=== PATIENT | female | born 1975 | race Caucasian/White ===

== ENCOUNTER → 2017-04-02 | Outpatient (CLI) | payer OTHER ==
[~2017-04-02] MED LIST: CIPRO500 MG PO; CLEOCIN HCL150 MG PO; CYCLOBENZAPRINE5 MG PO; FEMHRT 0.5 MG-1 EACH PO; HYDROCODONE-AP1 EAC6 PO; LINZESS72 MCG PO; NABUMETONE 750750 M1 PO; NORCO 5-325 TA1 EACH PO; OMEPRAZOLE 20 M20 MG PO; PREDNISONE50 MG PO; PYRIDIUM100 M1 PO; TRAMADOL 50 MG50 MG PO; VALIUM5 MG PO
== END ==
LOC: M.SLEEPLAB 02:01
DX: G47.30 Sleep apnea, unspecified (principal)

== ENCOUNTER → 2017-05-10 | Outpatient (CLI) | payer OTHER | LOC: M.CT 11:58 | DX: N20.0 Calculus of kidney (principal); Z90.49 Acquired absence of other specified parts of digestive tract ==

== ENCOUNTER 2017-07-07 00:01 | Emergency (ER) | payer OTHER, MEDICAID ==
[~2017-07-07] VITALS: Ht 162.6 cm; Wt 111.1 kg
[~2017-07-07 00:01] MED LIST changes: -CLEOCIN HCL150 MG PO; -FEMHRT 0.5 MG-1 EACH PO; -HYDROCODONE-AP1 EAC6 PO; -NABUMETONE 750750 M1 PO; -PREDNISONE50 MG PO; -VALIUM5 MG PO
[2017-07-07] MEDS ORDERED: VALIUM5 MG PO (00:12)
[2017-07-07 00:40] LABS: ABSOLUTE BASOPHILS 0.1 thou/uL (0.0-0.2); ABSOLUTE EOSINOPHILS 0.3 thou/uL (0.0-0.7); ABSOLUTE LYMPHOCYTES 2.9 thou/uL (0.8-5.3); ABSOLUTE MONOCYTES 0.7 thou/uL (0.0-1.2); ABSOLUTE NEUTROPHILS 6.4 thou/uL (1.6-8.1); BASOPHILS 1.3 %; EOSINOPHILS 2.6 %; HEMATOCRIT 40.2 % (37.0-47.0); HEMOGLOBIN 13.6 gm/dL (12.0-15.0); LYMPHOCYTES 27.7 %; MCH 29.9 pg (26.0-34.0); MCHC 33.7 g/dL (28.0-37.0); MCV 88.8 fL (80.0-100.0); MPV 7.9 fl. (7.2-11.1); NUCLEATED RBCS 0 /100WBC; PLATELET COUNT* 386 thou/uL (150-400); POLYS 61.4 %; RBC 4.53 mil/uL (4.20-5.00); RDW-CV 13.3 % (10.5-14.5); WBC 10.4 thou/uL (4.0-11.0)
[2017-07-07 00:44] LABS: CALCIUM 8.8 mg/dL (8.5-10.1)
[2017-07-07 00:46] LABS: URINE BILIRUBIN NEGATIVE (Negative); URINE BLOOD NEGATIVE (Negative); URINE CLARITY CLEAR; URINE COLOR YELLOW; URINE GLUCOSE-RANDOM NEGATIVE (Negative); URINE KETONES NEGATIVE (Negative); URINE LEUKOCYTES-REFLEX NEGATIVE (Negative); URINE NITRITE-REFLEX NEGATIVE (Negative); URINE PROTEIN NEGATIVE (Negative); URINE UROBILINOGEN 0.2 E.U./dl (0.2-1.0)
[2017-07-07 00:49] LABS: ALBUMIN 3.2 g/dL (3.4-5.0); TOTAL BILIRUBIN 0.3 mg/dL (<0.1-1.0); TOTAL PROTEIN 7.1 g/dL (6.4-8.2)
[2017-07-07] MEDS ORDERED: NORCO 5-325 TA1 EACH PO (02:00)
[2017-07-07 02:11] VITALS: BP 118/73
== END 2017-07-07 02:14 | disposition home or self-care (01) ==
LOC: M.ERS 00:01
PROVIDERS: Family Medicine
DX: R10.9 Unspecified abdominal pain (principal); Z90.49 Acquired absence of other specified parts of digestive tract; Z87.442 Personal history of urinary calculi; Z88.1 Allergy status to other antibiotic agents; Z88.8 Allergy status to other drugs, medicaments and biological substances

== ENCOUNTER → 2017-07-08 | Outpatient (CLI) | payer OTHER, MEDICAID ==
[~2017-07-08] MED LIST changes: +CLEOCIN HCL150 MG PO; +FEMHRT 0.5 MG-1 EACH PO; +HYDROCODONE-AP1 EAC6 PO; +NABUMETONE 750750 M1 PO; +PREDNISONE50 MG PO; +VALIUM5 MG PO
== END ==
LOC: M.ULTRA 07-05 13:00
DX: N83.202 Unspecified ovarian cyst, left side (principal); N83.201 Unspecified ovarian cyst, right side; N88.8 Other specified noninflammatory disorders of cervix uteri

== ENCOUNTER 2017-07-25 07:46 | Observation (INO) | payer OTHER, MEDICAID ==
[~2017-07-25] VITALS: Ht 162.6 cm; Wt 118.8 kg
--- NOTE | ~2017-07-25 | OP ---
[address] [address] OPERATIVE REPORT Name: KRZYSZTOF MARLOW Room: [address] Lexx Thornton#: [id number] Admission: 07/25/17 Attend Phys: Maxwell Crocker MD Discharge: 07/26/17 Date of : 71 Report #: [id number] THIS REPORT FOR: //name// For Operative report details, please see the post operative note from the same day. By: [id number] Records Staff NEHAL /HERMAN
--- NOTE | ~2017-07-25 | H ---
[address] [address] HISTORY AND PHYSICAL Name: KRZYSZTOF MARLOW Room: [address] Lexx Thornton#: [id number] Admission: 07/25/17 Attend Phys: Maxwell Crocker MD Discharge: 07/26/17 Date of : 71 Report #: [id number] THIS REPORT FOR: //name// Please refer to the History and Physical performed in the physician's office. By: [id number] Records Staff NEHAL /HERMAN
[~2017-07-25 07:46] MED LIST changes: -CLEOCIN HCL150 MG PO; -FEMHRT 0.5 MG-1 EACH PO; -HYDROCODONE-AP1 EAC6 PO; -NABUMETONE 750750 M1 PO; -PREDNISONE50 MG PO
[2017-07-25 08:19] LABS: HEMATOCRIT 43.4 % (37.0-47.0); HEMOGLOBIN 14.7 gm/dL (12.0-15.0); MCH 29.5 pg (26.0-34.0); MCHC 33.8 g/dL (28.0-37.0); MCV 87.5 fL (80.0-100.0); MPV 8.1 fl. (7.2-11.1); RBC 4.97 mil/uL (4.20-5.00); RDW-CV 13.3 % (10.5-14.5); WBC 9.9 thou/uL (4.0-11.0)
[2017-07-25 08:31] LABS: POTASSIUM 3.9 mmol/L (3.5-5.1)
[2017-07-25 08:36] LABS: ALBUMIN 3.3 g/dL (3.4-5.0); TOTAL BILIRUBIN 0.3 mg/dL (<0.1-1.0); TOTAL PROTEIN 7.4 g/dL (6.4-8.2)
[2017-07-25 12:45] VITALS: BP 124/60
[2017-07-25 15:45] VITALS: BP 113/69
[2017-07-25 20:00] VITALS: BP 132/85
--- NOTE | 2017-07-25 20:42 | NUR ---
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 SHE IS ALERT AND ORIENTED X4 AND IS UP WITH STAND BY ASSIST. BED IS IN THE LOW LOCKED POSITION AND CALL LIGHT IS IN REACH. HOURLY ROUNDING WAS COMPLETED AND PATIENT NEEDS WERE MET. PAIN IS MANAGED WITH PRN MEDICATIONS. IS AT THE BEDSIDE. ALL 3 LAP SITES ARE C/D/I WITH DERMABOND. SHE IS WEARING SCD'S. FLUIDS ARE INFUSING. WILL CONTINUE TO MONITOR.
[2017-07-25 23:54] VITALS: BP 125/87
[2017-07-26 03:55] VITALS: BP 131/82
--- NOTE | 2017-07-26 04:46 | NUR ---
PATIENT ALERT AND ORIENTED X4 THROUGHOUT SHIFT. VITAL SIGNS STABLE ON ROOM AIR. IV PATENT IN THE LEFT HAND INFUSING AT 125 ML/HR. DENIES NAUSEA. PAIN MANAGED WITH PO PAIN MEDICATIONS PER ORDERS. REPOSITIONING SELF IN BED. TRANSFERS AD STEVEN TO THE RESTOOM. TOLERATING REGULAR DIET. RESTING COMFORTABLY THROUGHOUT NIGHT. HOURLY ROUNDING COMPLETE. BED IN LOW POSITION. CALL LIGHT WITHIN REACH. NURSING WILL CONTINUE TO MONITOR.
[2017-07-26 07:45] VITALS: BP 120/78
[2017-07-26] MEDS ORDERED: FEMHRT 0.5 MG-1 EACH PO (10:20)
[2017-07-26] MEDS ORDERED: HYDROCODONE-AP1 EAC6 PO (10:21)
[2017-07-26 10:22] VITALS: BP 120/78
--- NOTE | 2017-11-26 15:15 | PATH ---
[facility] [address] [place] [address] PATHOLOGY RPT PROCEDURE Name: KRZYSZTOF MARLOW Room: [address] Lexx Thornton#: [id number] Admission: 07/25/17 Date of : 71 Discharge: 07/26/17 Report #: [id number] Path Case #: [id number] LCA Accession Number: [id number] . 01 Material submitted: . BILATERAL TUBES AND OVARIES . 01 Clinical history: . Right ovarian cyst, abnormal menses, pelvic pain. . 02 Diagnosis: Bilateral tubes and ovaries: - Larger tubo-ovarian complex (9 grams) with degenerating ovarian corpora lutea and corpora albicantia and fimbriated fallopian tube with cystic Walthard's rest, simple paratubal mullerian cyst and evidence of prior ligation. - Smaller tubo-ovarian complex (7 grams) with ovarian corpus luteum, follicular cyst and corpora albicantia and fimbriated fallopian tube with cystic Walthard's rest and evidence of prior ligation. (SUE:db; 07/29/2017) LBQ/07/29/2017 . 02 Comment: This case was prepared and proofread by Dr. Earnest Chaves and electronically released by Dr. Martha Resendiz. . 02 Electronically signed: . Martha Resendiz MD, Pathologist NPI- [id number] . 01 Gross description: . The specimen is received in formalin, labeled " Krzysztof Marlow and bilateral tubes and ovaries", are two tubo-ovarian complexes, the largest weighing 9 g and measuring (ovary) 2.5 x 2.0 x 1.5 cm and attached fimbriated fallopian tube (5.5 cm in length and up to 0.4 cm in diameter) and the other weighing 7 g and measuring (ovary) 3.0 x 2.0 x 1.7 cm and fimbriated fallopian tube (5.0 cm in length and up to 0.4 cm in diameter). Both the fallopian tubes show status post previous ligations. Both the ovaries cut surface shows corpora lutea and corpora albicantia, with the largest containing a 2.0 x 1.0 x 0.8 cm cyst filled with blood-tinged fluid. The serosal surface of fallopian tube attached to the largest tubo-ovarian complex has three rocha-white nodules measuring 0.1 cm, 0.2 cm and 0.2 cm and a paratubal cyst measuring 1.0 x 0.6 x 0.5 cm filled with clear serous fluid. The second fallopian tube serosal surface has a 0.1 cm in greatest dimension paratubal cyst. Both of the fallopian tubes show a well-defined lumen. Telephone Sales Agent sections submitted as follows: [place] [address] PATHOLOGY RPT PROCEDURE Name: KRZYSZTOF MARLOW Room: [address] Lexx Thornton#: [id number] Admission: 07/25/17 Date of : 71 Discharge: 07/26/17 Report #: [id number] Path Case #: [id number] A1-A2 Ovary from largest tubo-ovarian complex A3 Fallopian tube from the largest tubo-ovarian complex A4-A5 Ovary from second tubo-ovarian complex A6 Fallopian tube from the second tubo-ovarian complex . (SWS; 07/26/2017) SHS/SHS . 02 Pathologist provided ICD-10: N83.8, N83.00, R10.2 . 02 CPT . 241233 Specimen Comment: A duplicate report has been generated due to demographic updates. Performed at: [address] [facility] [address], [place], [place] [id number] MD Juventino Jaimes MD Phone: [phone] Performed at: [address] [facility] [id number] MD Mame Ames MD Phone: [phone]
== END 2017-07-26 10:46 | disposition home or self-care (01) ==
LOC: M.SUR 07:46 → M.ORTHSURG 11:30 → M.TBA 11:30 → M.ORTHSURG 12:30
PROVIDERS: ADMIT Specialist
DX: K66.0 Peritoneal adhesions (postprocedural) (postinfection) (principal); R10.2 Pelvic and perineal pain; R30.0 Dysuria

== ENCOUNTER → 2017-09-20 | Outpatient (CLI) | payer OTHER, MEDICAID ==
[~2017-09-20] MED LIST changes: +CLEOCIN HCL150 MG PO; +FEMHRT 0.5 MG-1 EACH PO; +HYDROCODONE-AP1 EAC6 PO; +NABUMETONE 750750 M1 PO; +PREDNISONE50 MG PO
== END ==
LOC: M.RAD 12:38
DX: M25.562 Pain in left knee (principal)

== ENCOUNTER 2017-11-03 21:06 | Emergency (ER) | payer OTHER, MEDICAID ==
[~2017-11-03] VITALS: Ht 162.6 cm; Wt 108.4 kg
[~2017-11-03 21:06] MED LIST changes: -CLEOCIN HCL150 MG PO; -NABUMETONE 750750 M1 PO; -PREDNISONE50 MG PO
[2017-11-03] MEDS ORDERED: CLEOCIN HCL150 MG PO (21:48)
[2017-11-03] MEDS ORDERED: NABUMETONE 750750 M1 PO (21:48)
[2017-11-03] MEDS ORDERED: NORCO 5-325 TA1 EACH PO (21:48)
[2017-11-03 22:14] VITALS: BP 146/101
== END 2017-11-03 22:14 | disposition home or self-care (01) ==
LOC: M.ERS 21:06
DX: K04.7 Periapical abscess without sinus (principal); Z88.1 Allergy status to other antibiotic agents; Z88.8 Allergy status to other drugs, medicaments and biological substances; Z87.442 Personal history of urinary calculi; Z90.49 Acquired absence of other specified parts of digestive tract

== ENCOUNTER → 2017-11-05 | Outpatient (CLI) | payer OTHER, MEDICAID ==
[~2017-11-05] MED LIST changes: +CLEOCIN HCL150 MG PO; +NABUMETONE 750750 M1 PO; +PREDNISONE50 MG PO
== END ==
LOC: M.MRI 10-31 07:30
DX: S83.242A Other tear of medial meniscus, current injury, left knee, initial encounter (principal); S83.282A Other tear of lateral meniscus, current injury, left knee, initial encounter; X58.XXXA Exposure to other specified factors, initial encounter; Y93.89 Activity, other specified; Y92.89 Other specified places as the place of occurrence of the external cause; Y99.8 Other external cause status; Z79.899 Other long term (current) drug therapy

== ENCOUNTER 2017-11-11 12:36 | Emergency (ER) | payer OTHER, MEDICAID ==
[~2017-11-11] VITALS: Ht 162.6 cm; Wt 108.0 kg
[~2017-11-11 12:36] MED LIST changes: -PREDNISONE50 MG PO
[2017-11-11] MEDS ORDERED: PREDNISONE50 MG PO (13:34)
[2017-11-11] MEDS ORDERED: NORCO 5-325 TA1 EACH PO (13:34)
[2017-11-11 13:42] VITALS: BP 137/99
== END 2017-11-11 13:43 | disposition home or self-care (01) ==
LOC: M.ERS 12:36
DX: R68.84 Jaw pain (principal); Z88.1 Allergy status to other antibiotic agents; Z88.8 Allergy status to other drugs, medicaments and biological substances; Z90.49 Acquired absence of other specified parts of digestive tract; Z87.442 Personal history of urinary calculi; Z98.890 Other specified postprocedural states

== ENCOUNTER 2018-03-27 08:07 | Emergency (ER) | payer OTHER, MEDICAID ==
[~2018-03-27] VITALS: Ht 162.6 cm; Wt 103.9 kg
[~2018-03-27 08:07] MED LIST changes: +PREDNISONE50 MG PO
[2018-03-27 08:26] LABS: URINE BILIRUBIN NEGATIVE (Negative); URINE BLOOD NEGATIVE (Negative); URINE CLARITY CLEAR; URINE COLOR YELLOW; URINE GLUCOSE-RANDOM NEGATIVE (Negative); URINE KETONES NEGATIVE (Negative); URINE LEUKOCYTES-REFLEX NEGATIVE (Negative); URINE NITRITE-REFLEX NEGATIVE (Negative); URINE PROTEIN NEGATIVE (Negative); URINE UROBILINOGEN 0.2 E.U./dl (0.2-1.0)
[2018-03-27 08:37] LABS: HEMATOCRIT 46.9 % (37.0-47.0); MCH 30.5 pg (26.0-34.0); MCV 89.6 fL (80.0-100.0); MPV 7.6 fl. (7.2-11.1); RBC 5.24 mil/uL (4.20-5.00); RDW-CV 12.9 % (10.5-14.5); WBC 10.5 thou/uL (4.0-11.0)
[2018-03-27 08:44] LABS: CALCIUM 9.3 mg/dL (8.5-10.1); CREATININE 1.1 mg/dL (0.6-1.3)
[2018-03-27 08:58] LABS: ALBUMIN 3.5 g/dL (3.4-5.0); TOTAL BILIRUBIN 0.6 mg/dL (<0.1-1.0); TOTAL PROTEIN 7.9 g/dL (6.4-8.2)
[2018-03-27] MEDS ORDERED: HYDROCODONE-AP1 EAC6 PO (10:17)
[2018-03-27] MEDS ORDERED: ZOFRAN ODT4 MG DISSOLVE (10:17)
[2018-03-27 10:29] VITALS: BP 114/62
== END 2018-03-27 10:30 | disposition home or self-care (01) ==
LOC: M.ERS 08:07
PROVIDERS: Emergency Medicine Emergency Medical Services
DX: R10.12 Left upper quadrant pain (principal); R10.32 Left lower quadrant pain; Z88.1 Allergy status to other antibiotic agents; Z88.8 Allergy status to other drugs, medicaments and biological substances; Z90.49 Acquired absence of other specified parts of digestive tract; Z87.442 Personal history of urinary calculi; Z98.890 Other specified postprocedural states

== ENCOUNTER 2018-04-03 13:08 | Emergency (ER) | payer OTHER, MEDICAID ==
[~2018-04-03] VITALS: Ht 162.6 cm; Wt 103.9 kg
[~2018-04-03 13:08] MED LIST changes: +ZOFRAN ODT4 MG DISSOLVE
[2018-04-03] MEDS ORDERED: PROAIR HFA8.5 GM (13:20)
[2018-04-03] MEDS ORDERED: ESTRADIOL 1 MG T1 M1 PO (13:20)
[2018-04-03] MEDS ORDERED: EFFEXOR XR75 MG PO (13:20)
[2018-04-03 13:59] LABS: ABSOLUTE EOSINOPHILS 0.2 thou/uL (0.0-0.7); ABSOLUTE LYMPHOCYTES 1.7 thou/uL (0.8-5.3); ABSOLUTE MONOCYTES 0.5 thou/uL (0.0-1.2); BASOPHILS 0.2 %; EOSINOPHILS 1.8 %; HEMATOCRIT 46.2 % (37.0-47.0); HEMOGLOBIN 15.2 gm/dL (12.0-15.0); LYMPHOCYTES 20.2 %; MCH 29.6 pg (26.0-34.0); MCV 89.9 fL (80.0-100.0); MONOCYTES 5.9 %; MPV 7.6 fl. (7.2-11.1); NUCLEATED RBCS 1 /100WBC; PLATELET COUNT* 449 thou/uL (150-400); POLYS 71.9 %; RBC 5.14 mil/uL (4.20-5.00); RDW-CV 13.2 % (10.5-14.5); WBC 8.4 thou/uL (4.0-11.0)
[2018-04-03 14:02] LABS: URINE BILIRUBIN NEGATIVE (Negative); URINE BLOOD NEGATIVE (Negative); URINE CLARITY CLEAR; URINE COLOR YELLOW; URINE GLUCOSE-RANDOM NEGATIVE (Negative); URINE KETONES NEGATIVE (Negative); URINE LEUKOCYTES-REFLEX NEGATIVE (Negative); URINE NITRITE-REFLEX NEGATIVE (Negative); URINE PROTEIN NEGATIVE (Negative); URINE SPECIFIC GRAVITY 1.025 (1.005-1.030); URINE UROBILINOGEN 0.2 E.U./dl (0.2-1.0)
[2018-04-03 14:05] LABS: CALCIUM 8.7 mg/dL (8.5-10.1); CREATININE 1.1 mg/dL (0.6-1.3); POTASSIUM 3.8 mmol/L (3.5-5.1)
[2018-04-03] MEDS ORDERED: FLEXERIL PO (14:15)
[2018-04-03] MEDS ORDERED: PREDNISONE 10 M10 M1 PO (14:15)
[2018-04-03 14:24] VITALS: BP 129/86
== END 2018-04-03 14:25 | disposition home or self-care (01) ==
LOC: M.ERS 13:08
PROVIDERS: Nurse Practitioner
DX: M79.18 Myalgia, other site (principal); M79.651 Pain in right thigh; M79.652 Pain in left thigh; Z91.048 Other nonmedicinal substance allergy status; Z88.1 Allergy status to other antibiotic agents; Z88.8 Allergy status to other drugs, medicaments and biological substances; Z90.49 Acquired absence of other specified parts of digestive tract; Z87.442 Personal history of urinary calculi; Z98.890 Other specified postprocedural states; Z90.721 Acquired absence of ovaries, unilateral

== ENCOUNTER → 2018-05-30 | Outpatient (CLI) | payer OTHER ==
[~2018-05-30] MED LIST changes: +EFFEXOR XR75 MG PO; +ESTRADIOL 1 MG T1 M1 PO; +FLEXERIL PO; +PREDNISONE 10 M10 M1 PO; +PROAIR HFA8.5 GM
== END ==
LOC: M.RAD 03-13 13:00
DX: Z12.31 Encounter for screening mammogram for malignant neoplasm of breast (principal)

== ENCOUNTER 2018-06-03 16:43 | Emergency (ER) | payer OTHER ==
[~2018-06-03] VITALS: Ht 162.6 cm; Wt 103.9 kg
[2018-06-03 17:24] LABS: URINE BILIRUBIN NEGATIVE (Negative); URINE BLOOD 3+ (Negative); URINE CLARITY CLEAR; URINE COLOR YELLOW; URINE GLUCOSE-RANDOM NEGATIVE (Negative); URINE KETONES TRACE (Negative); URINE LEUKOCYTES-REFLEX NEGATIVE (Negative); URINE NITRITE-REFLEX NEGATIVE (Negative); URINE PROTEIN TRACE (Negative); URINE SPECIFIC GRAVITY >= 1.030 (1.005-1.030); URINE UROBILINOGEN 0.2 E.U./dl (0.2-1.0)
[2018-06-03 17:33] LABS: BACTERIA-REFLEX None Seen /HPF (None Seen); CASTS None Seen /LPF (None Seen); CRYSTALS None Seen /LPF (None Seen); SQUAMOUS >10 Many /LPF (0-3); URINE RBC 0-2 Rare /HPF (0-2); URINE WBC-REFLEX 0-5 Rare /HPF (0-5)
[2018-06-03 17:38] LABS: ABSOLUTE BASOPHILS 0.2 thou/uL (0.0-0.2); ABSOLUTE EOSINOPHILS 0.1 thou/uL (0.0-0.7); ABSOLUTE LYMPHOCYTES 2.2 thou/uL (0.8-5.3); ABSOLUTE MONOCYTES 0.7 thou/uL (0.0-1.2); ABSOLUTE NEUTROPHILS 7.3 thou/uL (1.6-8.1); BASOPHILS 1.5 %; EOSINOPHILS 1.3 %; HEMATOCRIT 43.9 % (37.0-47.0); HEMOGLOBIN 14.5 gm/dL (12.0-15.0); LYMPHOCYTES 21.2 %; MCH 29.1 pg (26.0-34.0); MCHC 32.9 g/dL (28.0-37.0); MCV 88.5 fL (80.0-100.0); MPV 7.5 fl. (7.2-11.1); NUCLEATED RBCS 0 /100WBC; PLATELET COUNT* 462 thou/uL (150-400); RBC 4.96 mil/uL (4.20-5.00); RDW-CV 13.6 % (10.5-14.5); WBC 10.5 thou/uL (4.0-11.0)
[2018-06-03 17:48] LABS: ALBUMIN 3.2 g/dL (3.4-5.0); CALCIUM 8.8 mg/dL (8.5-10.1); CREATININE 1.1 mg/dL (0.6-1.3); POTASSIUM 3.7 mmol/L (3.5-5.1); TOTAL BILIRUBIN 0.2 mg/dL (<0.1-1.0); TOTAL PROTEIN 7.1 g/dL (6.4-8.2)
[2018-06-03] MEDS ORDERED: NORCO 5-325 TA1 EACH PO (18:23)
[2018-06-03] MEDS ORDERED: NABUMETONE 750750 M1 PO (18:23)
[2018-06-03 18:39] VITALS: BP 135/95
== END 2018-06-03 18:39 | disposition home or self-care (01) ==
LOC: M.ERS 16:43
PROVIDERS: Nurse Practitioner Family
DX: N88.8 Other specified noninflammatory disorders of cervix uteri (principal); Z88.1 Allergy status to other antibiotic agents; Z88.8 Allergy status to other drugs, medicaments and biological substances; Z90.49 Acquired absence of other specified parts of digestive tract; Z87.442 Personal history of urinary calculi; Z98.890 Other specified postprocedural states; Z90.721 Acquired absence of ovaries, unilateral

== ENCOUNTER → 2018-06-03 | Outpatient (CLI) | payer OTHER | LOC: M.CT 10:30 | DX: R10.31 Right lower quadrant pain (principal); R10.2 Pelvic and perineal pain; Z90.49 Acquired absence of other specified parts of digestive tract ==

== ENCOUNTER 2018-11-26 16:53 | Emergency (ER) | payer OTHER ==
[~2018-11-26] VITALS: Ht 162.6 cm; Wt 102.1 kg
[2018-11-26] MEDS ORDERED: PREDNISONE 20 M20 MG PO (17:40)
[2018-11-26 17:50] VITALS: BP 121/90
== END 2018-11-26 17:51 | disposition home or self-care (01) ==
LOC: M.ERS 16:53
DX: J45.901 Unspecified asthma with (acute) exacerbation (principal); Z90.49 Acquired absence of other specified parts of digestive tract; Z87.442 Personal history of urinary calculi; Z98.890 Other specified postprocedural states; Z98.51 Tubal ligation status; Z90.710 Acquired absence of both cervix and uterus; Z90.722 Acquired absence of ovaries, bilateral; Z88.1 Allergy status to other antibiotic agents; Z88.6 Allergy status to analgesic agent; Z88.8 Allergy status to other drugs, medicaments and biological substances; Z91.048 Other nonmedicinal substance allergy status

== ENCOUNTER 2018-11-26 22:31 | Inpatient (IN) | payer OTHER ==
[~2018-11-26] VITALS: Ht 162.6 cm; Wt 108.0 kg
[~2018-11-26 22:31] MED LIST changes: +PREDNISONE 20 M20 MG PO
[2018-11-26 22:42] VITALS: BP 154/83
[2018-11-26 23:09] LABS: HEMATOCRIT 44.9 % (37.0-47.0); HEMOGLOBIN 14.9 gm/dL (12.0-15.0); MCH 29.5 pg (26.0-34.0); MCHC 33.3 g/dL (28.0-37.0); MCV 88.5 fL (80.0-100.0); MPV 7.8 fl. (7.2-11.1); NUCLEATED RBCS 0 /100WBC; PLATELET COUNT* 431 thou/uL (150-400); RBC 5.07 mil/uL (4.20-5.00); RDW-CV 13.9 % (10.5-14.5); WBC 15.7 thou/uL (4.0-11.0)
[2018-11-26 23:21] LABS: ANION GAP 12 mmol/L (7-16); BUN 12 mg/dL (7-18); CALCIUM 9.4 mg/dL (8.5-10.1); CHLORIDE 106 mmol/L (98-107); CO2 22 mmol/L (21-32); CREATININE 1.3 mg/dL (0.6-1.3); GLUCOSE 259 mg/dL (70-99); POTASSIUM 3.8 mmol/L (3.5-5.1); SODIUM 140 mmol/L (136-145)
[2018-11-26 23:26] LABS: APTT 25.5 Seconds (25.0-31.3); PROTIME 10.1 Seconds (9.20-11.50)
[2018-11-26 23:30] LABS: ALBUMIN 3.4 g/dL (3.4-5.0); ALKALINE PHOSPHATASE 120 U/L (46-116); SGOT 15 U/L (15-37); SGPT 34 U/L (30-65); TOTAL BILIRUBIN 0.2 mg/dL (<0.1-1.0); TOTAL PROTEIN 7.7 g/dL (6.4-8.2); TROPONIN-I LEVEL <0.06 ng/mL (<0.06)
[2018-11-27 00:37] LABS: ABSOLUTE LYMPHOCYTES 0.6 thou/uL (0.8-5.3); ABSOLUTE NEUTROPHILS 15.1 thou/uL (1.6-8.1); ANISOCYTOSIS Occasional; PLATELET ESTIMATE INCREASED; TOXIC GRANULATION 1+
[2018-11-27 01:20] LABS: BE -4.9 mmol/L (-2 to +3); PCO2 26.2 mmHg (35.0-45.0); PO2 109.2 mmHg (75.0-100.0); pH 7.441 (7.340-7.450)
[2018-11-27 03:21] VITALS: BP 135/54
[2018-11-27 04:30] VITALS: BP 114/72
--- NOTE | 2018-11-27 06:11 | NUR ---
ADMIT TO 233. PT ALERT ORIENTED. UP AD STEVEN. O2 AT [address] PT STATED ELIAS FOR HOURS. DR OLSEN NOTIFIED. TYLENOL ORDERED. PT SLEEPING. NS AT 250ML/HR X 1 LITER RUNNING.
[2018-11-27 08:02] VITALS: BP 123/64
--- NOTE | 2018-11-27 09:39 | NUR ---
ASSUMED CARE OF PT THIS AM AROUND 0715- RADIOLOGY SCHEDULER IN PLACE ORDERED, TRACING ST- UPON ASSESSMENT PT NOTED TO BE RESTING IN BED, WATCHING TV- PT A&O X4- CONTINENT OF B/B- UP AD-STEVEN IN ROOM, STEADY GAIT NOTED- DIMINSHED LUNG SOUNDS, RESP EVEN AND SP-ZEREOIT-[id number] COUGH REPORTED-LIMITED INSPIRATION- VSS, O2 SAT 94% ON RA- ABD SOFT/ROUND/NON-TENDER, BS X4 QUADS- LAST BM REPORTED 11/26/18- GOOD PO INTAKE NOTED THIS AM WITH BREAKFAST- IV NOTED TO RIGHT FA INTACT, IVF COMPLETED THIS AM PRESCRIBED- PO ABT GIVEN THIS AM PRESCRIBED- BREATHING TX PER RT THIS SHIFT-CALL LIGHT AND PERSONAL BELONGINGS WITH IN REACH- PT MAKES NEEDS KNOWN- ALL NEEDS MET AT THIS TIME-WCTM
--- NOTE | 2018-11-27 09:51 | EKG ---
[place] [address] ELECTROCARDIOGRAM REPORT Name: ELEKRZYSZTOF KAREN Room: [place] [address] ADM IN ..#: [id number] Admission: 11/27/18 Attend Phys: Eileen Edwards MD Discharge: Date of : 71 Report #: [id number] THIS REPORT FOR: //name// [facility] ED Test Date: 2018-11-26 Test Time: 22:57:42 Pat Name: KRZYSZTOF MARLOW Department: Room: 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: [place] : 1975 Requested By: Ron Canela Order Number: [id number] MD: Chavez Gregorio Measurements Intervals [place] Rate: 130 P: 40 MD: 133 QRS: 24 QRSD: 76 T: 26 QT: 307 QTc: 452 Interpretive Statements Sinus tachycardia Probable left atrial enlargement Borderline ST depression, lateral leads Artifact in lead(s) I,II,III,aVR,aVL,aVF and baseline wander in lead(s) V1,V2,V4 Compared to ECG 12/20/2015 20:26 Sinus rhythm no longer present Electronically Signed On 11-27-2018 9:51:46 CDT by Chavez Gregorio [email or web address] <ELECTRONICALLY SIGNED> By: Chavez Gregorio MD, [facility] 11/27/18 0951 2257 Chavez Gregorio MD, [facility] /EPI
[2018-11-27 11:46] VITALS: BP 112/68
[2018-11-27 16:17] VITALS: BP 107/64
--- NOTE | 2018-11-27 16:49 | NUR ---
PT CURRENTLY RESTING IN BED, FAMILY AT SIDE VISITING- DIVISION ORDER TECHNICIAN IN PLACE ORDERED, TRACING ST- IV NOTED TO LEFT FA INTACT AND SL- GOOD PO INTAKE NOTED THIS SHIFT WITH MEALS- WORKING WITH IS INDICATED THIS SHIFT- DENIES ANY C/O PAIN/DISCOMFORT AT THIS TIME- MAKES NEEDS KNOWN- ALL NEEDS MET AT THIS TIME-WCTM
[2018-11-27 19:30] VITALS: BP 111/66
[2018-11-28 00:42] VITALS: BP 122/61
[2018-11-28 04:56] LABS: HEMATOCRIT 40.3 % (37.0-47.0); HEMOGLOBIN 13.1 gm/dL (12.0-15.0); MCH 28.7 pg (26.0-34.0); MCHC 32.5 g/dL (28.0-37.0); MCV 88.3 fL (80.0-100.0); MPV 7.8 fl. (7.2-11.1); RBC 4.56 mil/uL (4.20-5.00); RDW-CV 13.9 % (10.5-14.5); WBC 30.8 thou/uL (4.0-11.0)
[2018-11-28 05:07] LABS: CALCIUM 8.6 mg/dL (8.5-10.1); CREATININE 0.9 mg/dL (0.6-1.3); POTASSIUM 4.1 mmol/L (3.5-5.1)
--- NOTE | 2018-11-28 07:34 | NUR ---
PT ALERT AND ORIENTED. VSS ON RA. ASSESSMENT DOCUMENTED. MEDS GIVEN PER EMAR. PT RECEIVED TYLENOL FOR ELIAS. PT SLEPT MOST OF SHIFT. RFA SL. CALL LIGHT WITHIN REACH. HOURLY ROUNDINGS MADE. WILL CONTINUE TO MONITOR.
[2018-11-28 08:16] VITALS: BP 110/74
--- NOTE | 2018-11-28 09:53 | NUR ---
ASSUMED CARE OF PT THIS AM AROUND 0715- CATTLE DRIVER IN PLACE ORDERED, TRACING ST- UPON ASSESSMENT PT NOTED TO BE RESTING IN BED, WATCHING TV- PT A&O X4- CONTINENT OF BOWEL AND BLADDER- UP AD-STEVEN IN ROOM, STEADY GAIT NOTED- EXPIRATORY WHEEZING NOTED, LIMITED INSPIRATION WITH COUGH NOTE; PT WORKING WITH IS [place]- ABD SOFT/ROUND/NON-TENDER, BS X4 QUADS- LAST BM REPORTED 11/27/18- IV NOTED TO RIGHT FA INTACT AND SL- CONTINUED HEADACHE REPORTED WITH LIMITED EFFECTIVNESS WITH TYLENOL NOTED- NEW ORDER OBTAINED FOR NAPROXEN 375MG AND GIVEN AT 0947- CHEST X-RAY COMPLETED THIS AM PRESCRIBED WITH RESULTS NOTED IN Qlue-TECH- CALL LIGHT AND PERSONAL BELONGINGS WITH IN REACH- PT MAKES NEEDS KNOWN- ALL NEEDS MET AT THIS TIME-WCTM
[2018-11-28 12:07] VITALS: BP 116/73
--- NOTE | 2018-11-28 16:27 | NUR ---
PT CURRENTLY RESTING IN BED, EYES CLOSED- DRY CHAIN OFFBEARER IN PLACE ORDERED, TRACING ST- IV NOTED TO RIGHT FA INTACT AND SL- GOOD PO INTAKE NOTED THIS SHIFT WITH MEALS- NAPROXEN ORDERED, REPORTED TO BE INEFFECTIVE THIS SHIFT, NEW ORDERED OBATINED PER FOR CONTINUED HEADACHE FOR REGLAN 5MG Q 8 HOURS AND GIVEN AT 1353- PT REPORTS MEDICATION TO BE EFFECTIVE IN RELIEVING PRESSURE AND DOING BETER- CALL LIGHT AND PERSONAL BELONGINGS WITH IN REACH- PT MAKES NEEDS KNOWN- ALL NEEDS MET AT THIS TIME- BI
[2018-11-28 16:49] VITALS: BP 113/62
--- NOTE | 2018-11-28 17:01 | NUR ---
NO DISCHARGE NEEDS IDENTIFIED.
[2018-11-28 20:15] VITALS: BP 119/71
[2018-11-29] VITALS (7 sets, daily range): BP systolic 116–141; BP diastolic 63–84
[2018-11-29 02:06] LABS: GLYCOHEMOGLOBIN (HGB A1C) 5.9 % (4.8-5.6)
[2018-11-29 05:09] LABS: HEMATOCRIT 39.6 % (37.0-47.0); HEMOGLOBIN 12.9 gm/dL (12.0-15.0); MCH 28.9 pg (26.0-34.0); MCHC 32.6 g/dL (28.0-37.0); MCV 88.6 fL (80.0-100.0); MPV 7.9 fl. (7.2-11.1); RBC 4.47 mil/uL (4.20-5.00); RDW-CV 13.9 % (10.5-14.5); WBC 28.4 thou/uL (4.0-11.0)
[2018-11-29 05:35] LABS: CALCIUM 8.8 mg/dL (8.5-10.1); CREATININE 0.9 mg/dL (0.6-1.3); POTASSIUM 4.1 mmol/L (3.5-5.1)
--- NOTE | 2018-11-29 07:20 | NUR ---
CHANGE OF SHIFT BEDSIDE REPORT GIVEN PATIENT SEEN IN BED SITTING UP AND WATCHING TV ASSUMED PATIENT CARE
[2018-11-30 00:54] VITALS: BP 135/87
[2018-11-30 04:00] VITALS: BP 119/71
--- NOTE | 2018-11-30 05:23 | NUR ---
PT CARE ASSUMED AT 1930. SAT MAINTAINED IN RA. ALERT AND ORIENTED X4. CALL LIGHT WITHIN REACH AND BED IN LOW POSITION. DENIES PAIN AND SOB. HOURLY ROUNDING DONE FOR PT SAFETY.
--- NOTE | 2018-11-30 07:20 | NUR ---
CHANGE OF SHIFT, BEDSIDE REPORT GIVEN PATIENT SEEN AT BEDSIDE, IN BED RESTING ASSUMED PATIENT CARE
[2018-11-30 08:00] VITALS: BP 145/73
[2018-11-30] MEDS ORDERED: AZITHROMYCIN 2250 MG PO (10:42)
[2018-11-30] MEDS ORDERED: BREO ELLIPTA 21 EACH INH (10:42)
[2018-11-30] MEDS ORDERED: PREDNISONE 10 M10 MG PO (10:42)
[2018-11-30 11:55] VITALS: BP 145/73
--- NOTE | 2018-11-30 12:45 | NUR ---
DISCHARGE TO HOME DC INSTRUCTIONS GIVEN, ACKNOWLEDGED, SIGNED COPIES GIVEN IV AND HEART MONITOR REMOVED PERSONAL BELONGINGS RETURNED PATIENT ESCORTED OUT TO [facility] IN GOOD CONDITION
== END 2018-11-30 13:08 | disposition home or self-care (01) | DRG 202 ==
LOC: M.ERS 22:31 → M.2W 11-27 02:17 → M.TBA-ER 11-27 02:17 → M.2W 11-27 03:10 → M.ERS 11-27 03:22 → M.2W 11-30 13:08
PROVIDERS: Emergency Medicine; Internal Medicine; Nurse Practitioner Psychiatric/Mental Health; ADMIT Internal Medicine
DX: J45.901 Unspecified asthma with (acute) exacerbation (principal); J15.9 Unspecified bacterial pneumonia; J98.11 Atelectasis; E87.2 Acidosis; Z68.41 Body mass index [BMI] 40.0-44.9, adult; R00.0 Tachycardia, unspecified; R73.9 Hyperglycemia, unspecified; E66.9 Obesity, unspecified; J20.9 Acute bronchitis, unspecified; Z90.49 Acquired absence of other specified parts of digestive tract; Z87.442 Personal history of urinary calculi; Z90.710 Acquired absence of both cervix and uterus; Z88.6 Allergy status to analgesic agent; Z88.1 Allergy status to other antibiotic agents; Z88.8 Allergy status to other drugs, medicaments and biological substances; Z83.49 Family history of other endocrine, nutritional and metabolic diseases

== ENCOUNTER → 2018-12-10 | Outpatient (CLI) | payer OTHER ==
[~2018-12-10] MED LIST changes: +AZITHROMYCIN 2250 MG PO; +BREO ELLIPTA 21 EACH INH; +PREDNISONE 10 M10 MG PO
--- NOTE | 2018-12-23 08:02 | PF ---
[address] [address] PULMONARY FUNCTION REPORT Name: KRZYSZTOF MARLOW [id number] Admission: 12/10/18 Attend Phys: Candice Jerry DO Discharge: Date of : 71 Report #: [id number] THIS REPORT FOR: //name// CC: Candice Jerry DATE OF SERVICE: 12/10/2018 REQUESTING PHYSICIAN: Candice Jerry DO. Spirometry reveals normal FEV1 at 2.84, FVC 3.48. FEV1/FVC ratio was 82%. Mid flows are normal. No significant change seen after inhaled bronchodilator. Lung volumes by plethysmography were normal. Diffusion capacity was normal. IMPRESSION: Normal pulmonary function studies without evidence of a restrictive or obstructive process. <ELECTRONICALLY SIGNED> By: Barbara Steward MD 12/23/18 0802 1028 [id number] Steward MD /nt
== END ==
LOC: M.PUL 10:56
DX: J45.901 Unspecified asthma with (acute) exacerbation (principal); Z88.1 Allergy status to other antibiotic agents; Z88.8 Allergy status to other drugs, medicaments and biological substances

== ENCOUNTER → 2019-02-13 | Outpatient (CLI) | payer OTHER, MEDICAID | LOC: M.MRI 15:46 | DX: S83.242A Other tear of medial meniscus, current injury, left knee, initial encounter (principal); S83.282A Other tear of lateral meniscus, current injury, left knee, initial encounter; X58.XXXA Exposure to other specified factors, initial encounter; Y93.89 Activity, other specified; Y92.89 Other specified places as the place of occurrence of the external cause; Y99.8 Other external cause status ==

== ENCOUNTER 2019-02-26 14:55 | Emergency (ER) | payer OTHER, MEDICAID ==
[~2019-02-26] VITALS: Ht 162.6 cm; Wt 108.4 kg
[2019-02-26 15:31] LABS: ABSOLUTE EOSINOPHILS 0.2 thou/uL (0.0-0.7); ABSOLUTE LYMPHOCYTES 4.1 thou/uL (0.8-5.3); ABSOLUTE MONOCYTES 0.7 thou/uL (0.0-1.2); ABSOLUTE NEUTROPHILS 7.4 thou/uL (1.6-8.1); BASOPHILS 0.3 %; EOSINOPHILS 1.3 %; HEMATOCRIT 43.9 % (37.0-47.0); HEMOGLOBIN 14.7 gm/dL (12.0-15.0); LYMPHOCYTES 32.6 %; MCH 29.3 pg (26.0-34.0); MCHC 33.5 g/dL (28.0-37.0); MCV 87.5 fL (80.0-100.0); NUCLEATED RBCS 0 /100WBC; PLATELET COUNT* 431 thou/uL (150-400); POLYS 59.8 %; RBC 5.02 mil/uL (4.20-5.00); RDW-CV 13.3 % (10.5-14.5); WBC 12.4 thou/uL (4.0-11.0)
[2019-02-26 15:39] LABS: CALCIUM 8.9 mg/dL (8.5-10.1); CREATININE 1.5 mg/dL (0.6-1.3); POTASSIUM 3.6 mmol/L (3.5-5.1)
[2019-02-26 15:40] LABS: PROTIME 10.1 Seconds (9.20-11.50)
[2019-02-26 15:44] LABS: ALBUMIN 3.4 g/dL (3.4-5.0); TOTAL BILIRUBIN 0.3 mg/dL (<0.1-1.0); TOTAL PROTEIN 7.1 g/dL (6.4-8.2)
[2019-02-26] MEDS ORDERED: ADULT LOW DOSE81 MG PO (19:58)
[2019-02-26 20:05] VITALS: BP 145/93
--- NOTE | 2019-02-27 13:27 | EKG ---
[place] [address] ELECTROCARDIOGRAM REPORT Name: LADI MARLOWBERLY KAREN Room: [facility]#: [id number] Admission: 02/26/19 Attend Phys: Discharge: 02/26/19 Date of : 71 Report #: [id number] THIS REPORT FOR: //name// [facility] ED Test Date: 2019-02-26 Test Time: 15:19:00 Pat Name: KRZYSZTOF MARLOW Department: Room: Gender: F Tag Maker: [place] : 1975 Requested By: Zion Jones Order Number: [id number] MD: Bi Dockery Measurements Intervals [place] Rate: 74 P: 10 ID: 138 QRS: 4 QRSD: 87 T: 16 QT: 367 QTc: 408 Interpretive Statements Sinus rhythm Compared to ECG 11/26/2018 22:57:42 Sinus tachycardia no longer present ST (T wave) deviation no longer present Electronically Signed On 02-27-2019 13:27:33 HEALTHCARE BUSINESS ANALYST by Bi Dockery [email or web address] <ELECTRONICALLY SIGNED> By: Bi Dockery MD, [facility] 02/27/19 1327 1519 1519 Bi Dockery MD, FACC /EPI
== END 2019-02-26 20:06 | disposition home or self-care (01) ==
LOC: M.ERS 14:55
PROVIDERS: Emergency Medicine Emergency Medical Services
DX: R20.0 Anesthesia of skin (principal); R53.1 Weakness; J45.909 Unspecified asthma, uncomplicated; Z90.49 Acquired absence of other specified parts of digestive tract; Z87.442 Personal history of urinary calculi; Z98.51 Tubal ligation status; Z98.890 Other specified postprocedural states; Z90.710 Acquired absence of both cervix and uterus; Z88.5 Allergy status to narcotic agent; Z88.1 Allergy status to other antibiotic agents; Z88.8 Allergy status to other drugs, medicaments and biological substances

== ENCOUNTER 2019-05-09 09:22 | Emergency (ER) | payer OTHER, MEDICAID ==
[~2019-05-09] VITALS: Ht 162.6 cm; Wt 108.9 kg
[~2019-05-09 09:22] MED LIST changes: +ADULT LOW DOSE81 MG PO
[2019-05-09 10:01] LABS: ABSOLUTE BASOPHILS 0.1 thou/uL (0.0-0.2); ABSOLUTE EOSINOPHILS 0.3 thou/uL (0.0-0.7); ABSOLUTE LYMPHOCYTES 1.8 thou/uL (0.8-5.3); ABSOLUTE MONOCYTES 0.6 thou/uL (0.0-1.2); BASOPHILS 1.3 %; EOSINOPHILS 3.3 %; HEMATOCRIT 44.1 % (37.0-47.0); HEMOGLOBIN 14.9 gm/dL (12.0-15.0); LYMPHOCYTES 23.5 %; MCH 29.3 pg (26.0-34.0); MCHC 33.7 g/dL (28.0-37.0); MCV 86.9 fL (80.0-100.0); MONOCYTES 7.9 %; MPV 7.8 fl. (7.2-11.1); NUCLEATED RBCS 0 /100WBC; PLATELET COUNT* 392 thou/uL (150-400); RBC 5.07 mil/uL (4.20-5.00); RDW-CV 13.4 % (10.5-14.5); WBC 7.8 thou/uL (4.0-11.0)
[2019-05-09 10:02] LABS: URINE BILIRUBIN NEGATIVE (Negative); URINE BLOOD NEGATIVE (Negative); URINE CLARITY CLEAR; URINE COLOR YELLOW; URINE GLUCOSE-RANDOM NEGATIVE (Negative); URINE KETONES NEGATIVE (Negative); URINE LEUKOCYTES-REFLEX NEGATIVE (Negative); URINE NITRITE-REFLEX NEGATIVE (Negative); URINE PROTEIN NEGATIVE (Negative); URINE SPECIFIC GRAVITY 1.025 (1.005-1.030); URINE UROBILINOGEN 0.2 E.U./dl (0.2-1.0)
[2019-05-09 10:10] LABS: CALCIUM 8.6 mg/dL (8.5-10.1); CREATININE 0.9 mg/dL (0.6-1.3); POTASSIUM 3.5 mmol/L (3.5-5.1)
[2019-05-09 10:14] LABS: ALBUMIN 3.3 g/dL (3.4-5.0); TOTAL BILIRUBIN 0.6 mg/dL (<0.1-1.0); TOTAL PROTEIN 7.3 g/dL (6.4-8.2)
[2019-05-09 11:20] VITALS: BP 100/71
== END 2019-05-09 11:40 | disposition home or self-care (01) ==
LOC: M.ERS 09:22
PROVIDERS: Family Medicine
DX: R10.31 Right lower quadrant pain (principal); R19.7 Diarrhea, unspecified; Z87.442 Personal history of urinary calculi; Z98.890 Other specified postprocedural states; Z90.710 Acquired absence of both cervix and uterus; Z90.721 Acquired absence of ovaries, unilateral; Z90.49 Acquired absence of other specified parts of digestive tract; Z98.51 Tubal ligation status; Z91.048 Other nonmedicinal substance allergy status; Z88.1 Allergy status to other antibiotic agents; Z88.6 Allergy status to analgesic agent; Z88.8 Allergy status to other drugs, medicaments and biological substances

== ENCOUNTER 2019-06-17 13:12 | Emergency (ER) | payer OTHER, MEDICAID ==
[~2019-06-17] VITALS: Ht 162.6 cm; Wt 108.9 kg
[2019-06-17] MEDS ORDERED: NORETHIN-ETH E1 EACH PO (13:29)
[2019-06-17] MEDS ORDERED: PREDNISONE 10 M10 MG PO (13:30)
[2019-06-17 13:36] LABS: URINE BILIRUBIN NEGATIVE (Negative); URINE BLOOD NEGATIVE (Negative); URINE CLARITY CLEAR; URINE COLOR YELLOW; URINE GLUCOSE-RANDOM NEGATIVE (Negative); URINE KETONES NEGATIVE (Negative); URINE LEUKOCYTES-REFLEX NEGATIVE (Negative); URINE NITRITE-REFLEX NEGATIVE (Negative); URINE PROTEIN NEGATIVE (Negative); URINE SPECIFIC GRAVITY 1.015 (1.005-1.030); URINE UROBILINOGEN 0.2 E.U./dl (0.2-1.0)
[2019-06-17 13:49] LABS: ABSOLUTE BASOPHILS 0.1 thou/uL (0.0-0.2); ABSOLUTE LYMPHOCYTES 1.3 thou/uL (0.8-5.3); ABSOLUTE MONOCYTES 0.6 thou/uL (0.0-1.2); ABSOLUTE NEUTROPHILS 10.2 thou/uL (1.6-8.1); BASOPHILS 0.6 %; EOSINOPHILS 0.4 %; HEMATOCRIT 42.1 % (37.0-47.0); HEMOGLOBIN 14.3 gm/dL (12.0-15.0); MCH 29.5 pg (26.0-34.0); MCHC 33.9 g/dL (28.0-37.0); MONOCYTES 4.7 %; MPV 7.6 fl. (7.2-11.1); NUCLEATED RBCS 0 /100WBC; PLATELET COUNT* 403 thou/uL (150-400); POLYS 83.3 %; RBC 4.84 mil/uL (4.20-5.00); RDW-CV 13.6 % (10.5-14.5); WBC 12.2 thou/uL (4.0-11.0)
[2019-06-17 13:56] LABS: CALCIUM 8.5 mg/dL (8.5-10.1); CREATININE 1.1 mg/dL (0.6-1.3); POTASSIUM 3.9 mmol/L (3.5-5.1)
[2019-06-17 14:06] LABS: ALBUMIN 3.3 g/dL (3.4-5.0); TOTAL BILIRUBIN 0.5 mg/dL (<0.1-1.0); TOTAL PROTEIN 6.8 g/dL (6.4-8.2)
[2019-06-17] MEDS ORDERED: TYLENOL WITH CO1 TA1 PO (14:51)
[2019-06-17] MEDS ORDERED: ONDANSETRON HCL4 M3 PO (14:52)
[2019-06-17] MEDS ORDERED: BACTRIM DS TAB1 EACH PO (15:05)
[2019-06-17 15:17] VITALS: BP 132/70
--- NOTE | 2019-06-18 09:52 | EKG ---
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
== END 2019-06-17 15:17 | disposition home or self-care (01) ==
LOC: M.ERS 13:12
PROVIDERS: Family Medicine
DX: R10.32 Left lower quadrant pain (principal); J45.909 Unspecified asthma, uncomplicated; Z88.1 Allergy status to other antibiotic agents; Z88.5 Allergy status to narcotic agent; Z88.8 Allergy status to other drugs, medicaments and biological substances; Z90.710 Acquired absence of both cervix and uterus; Z90.49 Acquired absence of other specified parts of digestive tract; Z87.442 Personal history of urinary calculi; Z98.890 Other specified postprocedural states; Z90.89 Acquired absence of other organs

== ENCOUNTER → 2019-07-15 | Outpatient (CLI) | payer OTHER, MEDICAID ==
[~2019-07-15] MED LIST changes: +BACTRIM DS TAB1 EACH PO; +NORETHIN-ETH E1 EACH PO; +ONDANSETRON HCL4 M3 PO; +TYLENOL WITH CO1 TA1 PO
== END ==
LOC: M.MRI 07-08 09:37
DX: M47.817 Spondylosis without myelopathy or radiculopathy, lumbosacral region (principal); M51.26 Other intervertebral disc displacement, lumbar region

== ENCOUNTER → 2019-08-18 | Outpatient (CLI) | payer OTHER, MEDICAID ==
[~2019-08-18] MED LIST changes: +BREO ELLIPTA 11 EACH INH; +GRALISE600 MG PO; +LINZESS290 MCG PO; +OMEPRAZOLE40 MG PO
--- NOTE | ~2019-08-18 | PAINCON ---
[facility] [address] [place] [address] PAIN MANAGEMENT CONSULTATION Name: KRZYSZTOF MARLOW Room: [facility] CLAUDIA JulianSilvia#: [id number] Admission: 08/18/19 Attend Phys: Nisha Rosado MD Discharge: Date of : 71 Report #: [id number] THIS REPORT FOR: //name// cc: Candice Jerry Maggie M. DO ~ THIS REPORT FOR: //name// CC: Candice Rosado DATE OF SERVICE: 08/18/2019 CHIEF COMPLAINT: Back pain since 11/09/2018. HISTORY OF PRESENT ILLNESS: The patient is having pain in the lower back with swelling and the perception of burning down in her leg. Perceives some numbness, spasms and has been experiencing sharp pain. Pain is worse when she is walking, bending, sitting and sometimes while sleeping. Pain improves somewhat if she elevates and places some ice in the area of her low back. She describes it as continuous, steady, constant, burning, shooting, cramping, aching, pulling, throbbing, sharp, tender and rates it as a 6/10. It can rise to the level of 9-10 on a daily basis. She also notes some discomfort in her right arm. She did try a Medrol Dosepak and finished it about 4 weeks ago. Pain sometimes radiates down into the right groin and right hip. Right side is more problematic than the left. Has noted some pain and discomfort in the area of her thigh at times on the right side. She has tried Tylenol and does not notice a significant improvement in pain. She has and does use Aleve p.r.n. She has tried Tylenol No. 3, which has not been very helpful. Pain is worse when walking and sitting. She does have some problems with sleeping on her right side. She does have a history of kidney stones. She has come to the pain clinic for evaluation and treatment. ALLERGIES: ADHESIVE TAPE, AMOXICILLIN, HYDROMORPHONE, ZOMIG, AND DETROL. CURRENT MEDICATIONS: Breo ____, Linzess 290, omeprazole 40 mg, estradiol 1 mg, diazepam 5 mg p.r.n. as needed, Spiriva 2 puffs p.r.n., and ProAir. PAST MEDICAL HISTORY: Renal stones, left knee pain, and asthma. Arthritis, fibromyalgia as well as gastroesophageal reflux and irritable bowel syndrome. PAST SURGICAL HISTORY: Breast biopsy, cholecystectomy, lithotripsy, ovarian cyst, x 2, tubal ligation, ovary/tubes removed in July 2017, left knee scope in 2018, and hysterectomy. SOCIAL HISTORY: She is disabled, has not worked for [address] [place] [address] PAIN MANAGEMENT CONSULTATION Name: KRZYSZTOF MARLOW [id number] Admission: 08/18/19 Attend Phys: Nisha Rosado MD Discharge: Date of : 71 Report #: [id number] REVIEW OF SYSTEMS: Generally good health, fevers, fatigue, swelling of feet and hands. Chronic cough, asthma, wheezing, loss of appetite, abdominal pain, numbness and tingling sensation, joint pain, joint stiffness or swelling, weakness of muscles and joints, muscle pain and cramps, back pain, and difficulty walking. LABORATORY DATA: MRI of the lumbar spine without contrast dated 07/15/2019. There is normal alignment of the spine. The vertebral bodies and disks are normal. Disk degenerative changes are felt present at L4-L5. Axial images taken through L1-L2 through L5-S1. At L3-L4, there is minimal bulging of the disk annulus without impingement on the canal. Minimal left foraminal tapering is present at this level. There is early posterior facet degenerative changes present. At L4-L5, there is broad-based disk bulging with [id number]-pxvaxuaf posterior facet degenerative changes. No hip impingement is seen. The disk extends into the foramen causing mild foraminal tapering. Moderate posterior facet degenerative changes present at L5-S1 without impingement. Impression: 1. Disk degenerative changes at L4-L5 with broad-based disk bulge. No impingement is seen on the canal; however, mild left foraminal tapering is present from disk bulging along with srqo-su-qhcspaea posterior facet changes. 2. Moderate facet degenerative changes at L5-S1 without impingement. 3. Minimal foraminal disk bulge at L3-L4 causing minimal left foraminal tapering without impingement. PAIN CLINIC ASSESSMENT AND PQRS: 1. History of osteoarthritis. The patient has some arthritic changes in the lower portion of her back. She is not being treated for rheumatoid arthritis. 2. Height 5 feet 5 inches, weight 254 pounds, BMI is 42. 3. Blood pressure 95/37, heart rate 108, respiratory rate 16, room air saturation 95%, temperature 98.3. 4. Pain intensity 5/10. 5. Fall history: The patient has not fallen in the last 3 months. 6. Blood thinner. The patient is not on a blood thinning medication. 7. Hypertension. The patient is not being treated for hypertension. 8. Opioids greater than 6 weeks. The patient is not on an opioid regimen. 9. Risk assessment tool, low for opioid use. 10. Functional assessment tool, reviewed. 11. Recreational drug use. The patient denies. 12. Tobacco: The patient denies. 13. Alcohol: The patient denies. PHYSICAL EXAMINATION: GENERAL: The patient is a well-developed, well-nourished, somewhat obese white female, appears her stated age. Alert and oriented x 3. Her affect is appropriate. Speech is fluent. HEENT: Normocephalic, atraumatic. Extraocular eye muscles [place] [address] PAIN MANAGEMENT CONSULTATION Name: KRZYSZTOF MARLOW Room: [facility]#: [id number] Admission: 08/18/19 Attend Phys: Nisha Rosado MD Discharge: Date of : 71 Report #: [id number] nonicteric. Mucous membranes are moist. NECK: Without adenopathy or JVD. HEART: Regular rate. ABDOMEN: Nontender. LUNGS: Clear to auscultation. EXTREMITIES: Upper extremity muscle strength judged to be 5-/5 on the left upper extremity. The patient complains of some pain and tingling that radiates down into her right arm. She sometimes experiences spasms, involves her fingers. She complains of some pain in the right groin area. Complains of pain down the right lateral portion of her thigh. Anterior and posterior spring tests are negative. The patient does complain of some pain that radiates down to the posterior portion of her leg in the L4-L5 and L5-S1 dermatomal distribution. She notes difficulty lying on her right side. She has perceived some numbness and tingling in her leg. This is on the right side. She has perception of some swelling in this area. IMPRESSION: 1. Right hip pain with pain that radiates down to her right leg. 2. Renal stones. 3. Left knee pain. 4. Asthma. 5. Arthritis. 6. Fibromyalgia. 7. Gastroesophageal reflux. 8. Irritable bowel syndrome. RECOMMENDATIONS: We discussed treatment options with the patient. The patient states that she did have a Medrol Dosepak a few weeks ago. Pain continues to be problematic. She did have some problems with numbness on the right side of her face. That appears to have improved with a steroid medication. Still has pain and discomfort in the right hip area with pain that is radiating down into her right side. Possibility of an epidural steroid injections have been reviewed and discussed. The patient is having some pain and discomfort on the right arm and wrist area. We can review the upper arm in the future. It appears that the pain is most problematic is that which involves her right hip and radiates down into her leg. The patient will return to the Pain Clinic. Possible consideration of an epidural steroid injection will be rediscussed. We would like to thank you for letting us participate in her care. We hope she continues to improve. By: [id number]. Liam Rosado MD /laurent
== END ==
LOC: M.PC 04:21
PROVIDERS: ATTEND Anesthesiology Pain Medicine
DX: M47.816 Spondylosis without myelopathy or radiculopathy, lumbar region (principal); M25.551 Pain in right hip; M25.561 Pain in right knee; J45.909 Unspecified asthma, uncomplicated; M79.7 Fibromyalgia; K58.9 Irritable bowel syndrome, unspecified; K21.9 Gastro-esophageal reflux disease without esophagitis; N20.0 Calculus of kidney; Z79.899 Other long term (current) drug therapy

== ENCOUNTER → 2019-08-27 | Outpatient (CLI) | payer OTHER, MEDICAID ==
--- NOTE | 2019-09-13 21:55 | PAINCON ---
[facility] [address] [place] [address] PAIN MANAGEMENT CONSULTATION Name: KRZYSZTOF MARLOW [id number] Admission: 08/27/19 Attend Phys: Nisha Rosado MD Discharge: Date of : 71 Report #: [id number] THIS REPORT FOR: //name// cc: Candice Jerry Maggie M. DO ~ THIS REPORT FOR: //name// CC: Candice Rosado DATE OF SERVICE: 08/27/2019 CHIEF COMPLAINT: Low back pain. HISTORY: The patient is a 44-year-old female who has been referred to the pain clinic because of low back pain. She is experiencing pain in the low back area with pain that radiates into her groin and her hip. Pain also radiates down the lower portion of her back in the lumbar area. She rates her pain as a 6/10. She has been using a body pillow, which helps positioning while sleeping. She has returned today for an epidural steroid injection. ALLERGIES: AUGMENTIN, ADHESIVES, AMOXICILLIN, HYDROMORPHONE, ZOMIG, DETROL. SHE CONTINUES TO HAVE BURNING IN THE RIGHT LEG WITH NUMBNESS AND TINGLING. PAIN CLINIC ASSESSMENT/PQRS: 1. History of osteoarthritis. The patient is not being treated for osteoarthritis. 2. Rheumatoid arthritis. The patient is not being treated for rheumatoid arthritis. 3. Height 5 feet 5 inches, weight 254 pounds, BMI is 42.3. 4. Vital signs: Blood pressure 95/37, heart rate 108, respiratory rate 16, room air saturation is 95%, temperature 98.3. 5. Pain intensity 5/10. 6. Fall history: The patient has not fallen in the last 3 months. 7. Blood thinner. The patient is not on a blood thinning medication. 8. Hypertension. The patient is not being treated for hypertension. 9. Opioids greater than 6 weeks. The patient receives medication from one source. 10. Risk assessment tool, low for opioid use. 11. Functional assessment tool reviewed. 12. Recreational drug use. The patient denies. 13. Tobacco: The patient denies. 14. Alcohol. The patient denies frequent use of alcoholic beverages. PHYSICAL EXAMINATION: GENERAL: The patient is a well-developed, well-nourished [place] [address] PAIN MANAGEMENT CONSULTATION Name: KRZYSZTOF MARLOW Room: [facility]#: [id number] Admission: 08/27/19 Attend Phys: Nisha Rosado MD Discharge: Date of : 71 Report #: [id number] her stated age. She is alert and oriented x 3. Her affect is appropriate. Speech is fluent. HEENT: Normocephalic, atraumatic. Extraocular eye muscles intact. Sclerae nonicteric. Mucous membranes are moist. NECK: Without adenopathy or JVD. MUSCULOSKELETAL: The patient has some pain and discomfort and tingling down her right shoulder. She has some pain and discomfort in the lumbar area and has pain that is radiating down the right side of her thigh in the L5-S1 dermatomal distribution. IMPRESSION: Lumbar radiculopathy. RECOMMENDATIONS: We will proceed today with an epidural steroid injection. Risks and benefits of an epidural steroid injection were discussed. Possible complications of the procedure were reviewed. They include but are not limited to infection, worsening pain, no improvement in pain, nerve damage. We also discussed the problems with steroids. The COVID-19 virus upon us. So the patient become infected. She might have a more difficult time recovering. Steroids can decrease one's ability to launch an immune response. The patient is aware and elects to proceed. PROCEDURE NOTE: The patient was taken to the procedure area. She was then assisted in getting on examination table. Her back was sterilely prepped with a Betadine solution. A 0.25% bupivacaine was infiltrated. A 17-gauge Tuohy with loss of resistance technique was used to gain access to the L4/L5 epidural space. There was no CSF, heme or paresthesia. Total of 80 mg Depo-Medrol, 40 mg of triamcinolone and 2 mL of 0.25% bupivacaine was injected. The patient tolerated the procedure well. There were no complications. She will follow up in the future as needed. We would recommend that the patient try Lyrica. She states that she used this medication and found it problematic. She also tried gabapentin. This medication was problematic as well. I would recommend that she try gabapentin Gralise. I think that this would be helpful with her pain and discomfort at this juncture. We will write for release have the patient give this medication a try to help quell the pain and discomfort which she is experiencing. We would like to thank you for letting us to participate in her care. We hope she continues to improve. <ELECTRONICALLY SIGNED> By: Nisha Rosado MD 09/13/19 [id number]. Liam Rosado MD /[facility]
== END | disposition home or self-care (01) ==
LOC: M.PC 09:00
PROVIDERS: ATTEND Anesthesiology Pain Medicine
DX: M54.16 Radiculopathy, lumbar region (principal); G89.29 Other chronic pain; J45.909 Unspecified asthma, uncomplicated; Z90.49 Acquired absence of other specified parts of digestive tract; Z90.710 Acquired absence of both cervix and uterus; Z98.51 Tubal ligation status; Z98.890 Other specified postprocedural states; Z87.442 Personal history of urinary calculi; Z79.899 Other long term (current) drug therapy

== ENCOUNTER → 2019-09-24 | Outpatient (CLI) | payer OTHER, MEDICAID ==
[~2019-09-24] MED LIST changes: +MELATONIN3 M1 PO; +MOBIC15 MG PO
--- NOTE | 2019-10-02 09:02 | PAINCON ---
[address] [address] PAIN MANAGEMENT CONSULTATION Name: KRZYSZTOF MARLOW Room: [facility] Norberto#: [id number] Admission: 09/24/19 Attend Phys: Nisha Rosado MD Discharge: Date of : 71 Report #: [id number] THIS REPORT FOR: //name// cc: Candice Jerry Maggie M. DO ~ THIS REPORT FOR: //name// CC: Candice Rosado DATE OF SERVICE: 09/24/2019 CHIEF COMPLAINT: Pain is about 85% better after the last epidural steroid injection. HISTORY: The patient is a 44-year-old female who has been seen in the pain clinic because of lumbar radicular pain. She has undergone an epidural steroid injection. She feels that things are about 85% better since the procedure. She has been able to sleep on her right side at this juncture. She is not having as much numbness. Her leg "no longer feels like it is asleep". She is taking Aleve. She notes that pain can be increased by walking or prolonged sitting. She overall feels that things have improved and has returned to the pain clinic for evaluation. ALLERGIES: AUGMENTIN, ADHESIVES, AMOXICILLIN, HYDROMORPHONE, ZOMIG, AND DETROL. CURRENT MEDICATIONS: ProAir, Tylenol with Codeine #3, Valium 5 mg in the past for anxiety, Estrace 1 mg, Breo Ellipta 100/25 inhalation, gabapentin/Gralise 600 mg 24 hours, Linzess 290 mcg, melatonin 3 mg, meloxicam 15 mg, and omeprazole 40 mg. PAIN CLINIC ASSESSMENT AND PQRS: 1. History of osteoarthritis. The patient is not being treated for osteoarthritis. The patient is not being treated for rheumatoid arthritis. 2. Height 5 feet 5 inches, weight 253 pounds, BMI is 42. 3. Vital Signs: Blood pressure 136/81, heart rate 79, respiratory rate 16, room air saturation 94%, and temperature 97.3. 4. Pain intensity 2-3/10. 5. Fall history: The patient has not fallen in the last 3 months. 6. Blood thinner. The patient is not on a blood thinning medication. 7. Hypertension. The patient is not being treated for hypertension. 8. Opioids greater than 6 weeks. The patient receives medication from one source. 9. Risk assessment tool, low for opioid use. 10. Functional assessment tool, reviewed. 11. Recreational drug use. [place] [address] PAIN MANAGEMENT CONSULTATION Name: KRZYSZTOF MARLOW Room: [facility]#: [id number] Admission: 09/24/19 Attend Phys: Nisha Rosado MD Discharge: Date of : 71 Report #: [id number] 12. Tobacco: The patient denies. 13. Alcohol. The patient denies frequent use of alcoholic beverages. PHYSICAL EXAMINATION: GENERAL: The patient is a well-developed, well-nourished white female. Appears her stated age. She is alert and oriented x 3. Her affect is appropriate. Speech is fluent. HEENT: Normocephalic, atraumatic. Extraocular eye muscles intact. Sclerae nonicteric. Mucous membranes are moist. NECK: Without adenopathy or JVD. The patient is wearing a mask. HEART: Regular rate. LUNGS: Clear to auscultation. MUSCULOSKELETAL: The patient with some discomfort and has had tingling down in her right shoulder. She notes that pain in the lumbar area has improved. Less pain and discomfort in the L5-S1 dermatomal distribution. IMPRESSION: 1. Lumbar radiculopathy. 2. Pulmonary allergies. RECOMMENDATIONS: We discussed treatment options with the patient. At this juncture, she appeared to have improved about 85% after the last epidural steroid injection. At this point, we will continue with a conservative approach. She will follow up in the future as needed. We would like to thank you for letting us participate in her care. She will continue to increase her activity as tolerated. <ELECTRONICALLY SIGNED> By: Nisha Rosado MD 10/02/19 0902 [id number]. Liam Rosado MD /nt
== END ==
LOC: M.PC 04:01
PROVIDERS: ATTEND Anesthesiology Pain Medicine
DX: M54.16 Radiculopathy, lumbar region (principal); T78.49XA Other allergy, initial encounter; F11.20 Opioid dependence, uncomplicated; Z88.8 Allergy status to other drugs, medicaments and biological substances; Z79.899 Other long term (current) drug therapy

== ENCOUNTER → 2019-10-06 | Outpatient (CLI) | payer OTHER, MEDICAID | LOC: M.RAD 10-02 09:30 | PROVIDERS: ATTEND Family Medicine | DX: Z12.31 Encounter for screening mammogram for malignant neoplasm of breast (principal) ==

== ENCOUNTER → 2019-12-03 | Outpatient (CLI) | payer OTHER, MEDICAID | LOC: M.LAB 12:06 | DX: Z01.812 Encounter for preprocedural laboratory examination (principal); Z20.828 Contact with and (suspected) exposure to other viral communicable diseases; M65.4 Radial styloid tenosynovitis [de Quervain] ==

== ENCOUNTER → 2019-12-14 | Outpatient (CLI) | payer OTHER, MEDICAID ==
[2019-12-14 12:20] LABS: ABSOLUTE BASOPHILS 0.1 thou/uL (0.0-0.2); ABSOLUTE EOSINOPHILS 0.2 thou/uL (0.0-0.7); ABSOLUTE LYMPHOCYTES 1.9 thou/uL (0.8-5.3); ABSOLUTE MONOCYTES 0.7 thou/uL (0.0-1.2); ABSOLUTE NEUTROPHILS 6.7 thou/uL (1.6-8.1); BASOPHILS 1.2 %; EOSINOPHILS 2.2 %; HEMATOCRIT 41.3 % (37.0-47.0); MCH 30.1 pg (26.0-34.0); MCHC 33.8 g/dL (28.0-37.0); MONOCYTES 7.1 %; MPV 7.5 fl. (7.2-11.1); NUCLEATED RBCS 0 /100WBC; PLATELET COUNT* 405 thou/uL (150-400); POLYS 69.5 %; RBC 4.64 mil/uL (4.20-5.00); RDW-CV 14.1 % (10.5-14.5); WBC 9.6 thou/uL (4.0-11.0)
[2019-12-14 12:54] LABS: ALBUMIN 3.4 g/dL (3.4-5.0); CALCIUM 8.9 mg/dL (8.5-10.1); POTASSIUM 4.5 mmol/L (3.5-5.1); TOTAL BILIRUBIN 0.5 mg/dL (<0.1-1.0); TOTAL PROTEIN 6.5 g/dL (6.4-8.2)
== END ==
LOC: M.LAB 11:37
PROVIDERS: ATTEND Family Medicine
DX: L68.9 Hypertrichosis, unspecified (principal); R63.5 Abnormal weight gain; I10 Essential (primary) hypertension; L70.0 Acne vulgaris; E65 Localized adiposity; L90.6 Striae atrophicae

== ENCOUNTER → 2019-12-16 | Outpatient (CLI) | payer OTHER, MEDICAID ==
[2019-12-20 10:06] LABS: URINE CORTISONE 5 ug/L (Undefined); URINE FREE CORTISOL 10 ug/24 hr (6-42)
== END ==
LOC: M.LAB 11:16
PROVIDERS: ATTEND Family Medicine
DX: L68.9 Hypertrichosis, unspecified (principal); R63.5 Abnormal weight gain; I10 Essential (primary) hypertension; L70.9 Acne, unspecified; E65 Localized adiposity; L90.6 Striae atrophicae

== ENCOUNTER 2020-01-20 14:19 | Emergency (ER) | payer OTHER, MEDICAID ==
[~2020-01-20] VITALS: Ht 162.6 cm; Wt 114.3 kg
[2020-01-20] MEDS ORDERED: COZAAR 25 MG TA25 M1 PO (14:32)
[2020-01-20] MEDS ORDERED: NORCO 5-325 TA1 EAC2 PO (15:40)
[2020-01-20 16:09] VITALS: BP 138/77
== END 2020-01-20 16:09 | disposition designated cancer center or children's hospital (05) ==
LOC: M.ERS 14:19
DX: S29.012A Strain of muscle and tendon of back wall of thorax, initial encounter (principal); Z90.49 Acquired absence of other specified parts of digestive tract; Z87.442 Personal history of urinary calculi; Z98.51 Tubal ligation status; Z98.890 Other specified postprocedural states; Z90.710 Acquired absence of both cervix and uterus; Z88.1 Allergy status to other antibiotic agents; Z88.8 Allergy status to other drugs, medicaments and biological substances; Z88.5 Allergy status to narcotic agent; X50.9XXA Other and unspecified overexertion or strenuous movements or postures, initial encounter; Y93.89 Activity, other specified; Y92.89 Other specified places as the place of occurrence of the external cause; Y99.8 Other external cause status

== ENCOUNTER → 2020-01-27 | Outpatient (CLI) | payer OTHER, MEDICAID ==
[~2020-01-27] MED LIST changes: +COZAAR 25 MG TA25 M1 PO; +NORCO 5-325 TA1 EAC2 PO
--- NOTE | 2020-01-27 09:50 | 2DMMODE ---
[place] [address] 2 D/M-MODE ECHOCARDIOGRAM Name: ELEKRZYSZTOF D Room: [facility]#: [id number] Admission: 01/27/20 Attend Phys: Chavez Gregorio MD Discharge: Date of : 71 Date of Service: 01/27/20 0950 Report #: [id number] THIS REPORT FOR: cc: Candice Jerry Maggie M. DO Blick, David R. MD [facility] ~ APPROVED REPORT Study performed: 01/27/2020 07:49:40 EXAM: Comprehensive 2D, Doppler, and color-flow Echocardiogram Patient Location: Out-Patient BSA: 2.16 HR: 103 bpm BP: 118/80 mmHg Other Information Study Quality: Fair Indications Chest Pain 2D Dimensions IVSd: 11.74 (7-11mm) LVOT Diam: 20.63 (18-24mm) LVDd: 41.67 mm PWd: 9.32 (7-11mm) Ascending Ao: 28.83 (22-36mm) LVDs: 19.34 (25-40mm) Aortic Root: 26.27 mm Volumes Left Atrial Volume (Systole) LA ESV Index: 10.60 mL/m2 Aortic Valve AoV Peak Flex.: 1.38 m/s AO Peak Gr.: 7.56 mmHg LVOT Max P.18 mmHg AO Mean Gr.: 4.47 mmHg LVOT Mean P.97 mmHg LVOT Max V: 1.02 m/s AO V2 VTI: 25.85 cm LVOT Mean V: 0.64 m/s JANIA (VTI): 2.31 cm2 LVOT V1 VTI: 17.90 cm Mitral Valve E/A Ratio: 0.82 [place] [address] 2 D/M-MODE ECHOCARDIOGRAM Name: KRZYSZTOF MARLOW Room: [facility]#: [id number] Admission: 01/27/20 Attend Phys: Chavez Gregorio MD Discharge: Date of : 71 Date of Service: 01/27/20 0950 Report #: [id number] MV Decel. Time: 225.84 ms MV E Max Flex.: 0.51 m/s MV PHT: 65.49 ms MVA (PHT): 3.36 cm2 TDI E/Lateral E': 4.25 E/Medial E': 5.10 Medial E' Flex.: 0.10 m/s Lateral E' Flex.: 0.12 m/s Pulmonary Valve PV Peak Flex.: 0.89 m/s PV Peak Gr.: 3.14 mmHg Left Ventricle The left ventricle is normal size. There is normal LV segmental wall motion. There is normal left ventricular wall thickness. Left ventricular systolic function is normal. The left ventricular ejection fraction is within the normal range. LVEF is 55-60%. Grade I - abnormal relaxation pattern. Right Ventricle The right ventricle is normal size. The right ventricular systolic function is normal. Atria The left atrium size is normal. The right atrium size is normal. Aortic Valve The aortic valve is normal in structure. No aortic regurgitation is present. There is no aortic valvular stenosis. Mitral Valve The mitral valve is normal in structure. There is trace mitral valve regurgitation noted. No evidence of mitral valve stenosis. Tricuspid Valve The tricuspid valve is normal in structure. There is trace tricuspid valve regurgitation noted. Pulmonic Valve The pulmonary valve is normal in structure. There is no pulmonic valvular regurgitation. Great Vessels The aortic root is normal in size. The inferior [place] [address] 2 D/M-MODE ECHOCARDIOGRAM Name: KRZYSZTOF MARLOW Room: [facility]#: [id number] Admission: 01/27/20 Attend Phys: Chavez Gregorio MD Discharge: Date of : 71 Date of Service: 01/27/20 0950 Report #: [id number] visualized. Pericardium There is no pericardial effusion. <Conclusion> Left ventricular systolic function is normal. The left ventricular ejection fraction is within the normal range. <ELECTRONICALLY SIGNED> By: Chavez Gregorio MD, FACC 01/27/2050 9 9 Chavez rGegorio MD, FAC /INF
== END ==
LOC: M.CRD 07:53
PROVIDERS: ATTEND Internal Medicine Cardiovascular Disease
DX: R07.1 Chest pain on breathing (principal)

== ENCOUNTER 2020-03-05 09:05 | Emergency (ER) | payer OTHER, MEDICAID ==
[~2020-03-05] VITALS: Ht 162.6 cm; Wt 113.4 kg
[2020-03-05 09:22] LABS: URINE BILIRUBIN NEGATIVE (Negative); URINE BLOOD NEGATIVE (Negative); URINE CLARITY CLEAR; URINE COLOR YELLOW; URINE GLUCOSE-RANDOM NEGATIVE (Negative); URINE KETONES NEGATIVE (Negative); URINE LEUKOCYTES-REFLEX NEGATIVE (Negative); URINE NITRITE-REFLEX NEGATIVE (Negative); URINE PROTEIN NEGATIVE (Negative); URINE SPECIFIC GRAVITY 1.015 (1.005-1.030); URINE UROBILINOGEN 0.2 E.U./dl (0.2-1.0)
[2020-03-05] MEDS ORDERED: SPIRIVA18 MCG INH (09:22)
[2020-03-05 09:44] LABS: ABSOLUTE BASOPHILS 0.1 thou/uL (0.0-0.2); ABSOLUTE EOSINOPHILS 0.3 thou/uL (0.0-0.7); ABSOLUTE MONOCYTES 0.7 thou/uL (0.0-1.2); ABSOLUTE NEUTROPHILS 7.2 thou/uL (1.6-8.1); BASOPHILS 0.9 %; HEMATOCRIT 41.8 % (37.0-47.0); HEMOGLOBIN 13.7 gm/dL (12.0-15.0); LYMPHOCYTES 19.5 %; MCH 29.2 pg (26.0-34.0); MCHC 32.9 g/dL (28.0-37.0); MCV 88.9 fL (80.0-100.0); MONOCYTES 6.4 %; MPV 7.2 fl. (7.2-11.1); NUCLEATED RBCS 0 /100WBC; PLATELET COUNT* 432 thou/uL (150-400); POLYS 70.2 %; RBC 4.71 mil/uL (4.20-5.00); RDW-CV 13.3 % (10.5-14.5); WBC 10.3 thou/uL (4.0-11.0)
[2020-03-05 09:53] LABS: CALCIUM 8.6 mg/dL (8.5-10.1); POTASSIUM 3.6 mmol/L (3.5-5.1)
[2020-03-05 09:57] LABS: ALBUMIN 3.1 g/dL (3.4-5.0); TOTAL BILIRUBIN 0.4 mg/dL (<0.1-1.0); TOTAL PROTEIN 6.6 g/dL (6.4-8.2)
[2020-03-05] MEDS ORDERED: FLEXERIL PO (10:56)
[2020-03-05] MEDS ORDERED: PERCOCET 5-3251 EACH PO (10:56)
[2020-03-05 11:05] VITALS: BP 116/71
--- NOTE | 2020-03-06 13:10 | EKG ---
[place] [address] ELECTROCARDIOGRAM REPORT Name: KRZYSZTOF MARLOW Room: [facility]#: [id number] Admission: 03/05/20 Attend Phys: Discharge: 03/05/20 Date of : 71 Date of Service: 03/05/20919 Report #: [id number] THIS REPORT FOR: //name// [facility] ED Test Date: 2020-03-05 Test Time: 09:20:03 Pat Name: KRZYSZTOF MARLOW Department: Room: Gender: [employer]: : 1975 Requested By: Stevo Chacon Order Number: [id number] MD: Jean-Pierre Hernadez Measurements Intervals [place] Rate: 84 P: 25 AL: 141 QRS: 4 QRSD: 90 T: 30 QT: 365 QTc: 432 Interpretive Statements Sinus rhythm Compared to ECG 06/17/2019 15:00:09 No significant changes Electronically Signed On 03-06-2020 13:10:47 [employer] by Jean-Pierre Hernadez [email or web address] <ELECTRONICALLY SIGNED> By: Jean-Pierre Hernadez MD, [facility] 03/06/20 1310 9 9 Jean-Pierre Hernadez MD, [facility] /EPI
== END 2020-03-05 11:05 | disposition home or self-care (01) ==
LOC: M.ERS 09:05
PROVIDERS: Family Medicine
DX: R10.31 Right lower quadrant pain (principal); M79.651 Pain in right thigh; J45.909 Unspecified asthma, uncomplicated; Z90.49 Acquired absence of other specified parts of digestive tract; Z98.51 Tubal ligation status; Z87.442 Personal history of urinary calculi; Z90.710 Acquired absence of both cervix and uterus; Z79.899 Other long term (current) drug therapy; Z88.1 Allergy status to other antibiotic agents; Z88.6 Allergy status to analgesic agent; Z88.8 Allergy status to other drugs, medicaments and biological substances

== ENCOUNTER → 2020-04-21 | Outpatient (CLI) | payer OTHER, MEDICAID ==
[~2020-04-21] MED LIST changes: +PERCOCET 5-3251 EACH PO; +SPIRIVA18 MCG INH
== END | disposition home or self-care (01) ==
LOC: M.PC 11:10
PROVIDERS: ATTEND Anesthesiology Pain Medicine
DX: M54.16 Radiculopathy, lumbar region (principal); G89.29 Other chronic pain; J45.909 Unspecified asthma, uncomplicated; Z98.890 Other specified postprocedural states; Z79.899 Other long term (current) drug therapy; Z87.442 Personal history of urinary calculi; Z90.49 Acquired absence of other specified parts of digestive tract; Z98.51 Tubal ligation status; Z90.710 Acquired absence of both cervix and uterus

== ENCOUNTER → 2020-05-13 | Outpatient (CLI) | payer OTHER, MEDICAID | LOC: M.NUC 05-03 15:16 | PROVIDERS: ATTEND Family Medicine | DX: K29.70 Gastritis, unspecified, without bleeding (principal) ==

== ENCOUNTER → 2020-05-19 | Outpatient (CLI) | payer OTHER, MEDICAID ==
[~2020-05-19] MED LIST changes: +HYDROCHLOROTH12.5 M2 PO; +KEFLEX500 M1 PO
== END ==
LOC: M.MRI 07:12 → M.PC 09:30
PROVIDERS: ATTEND Anesthesiology Pain Medicine
DX: M94.261 Chondromalacia, right knee (principal); M25.861 Other specified joint disorders, right knee; M54.16 Radiculopathy, lumbar region; M54.5 Low back pain; N20.0 Calculus of kidney; J45.40 Moderate persistent asthma, uncomplicated

== ENCOUNTER 2020-05-31 09:50 | Emergency (ER) | payer OTHER, MEDICAID ==
[~2020-05-31] VITALS: Ht 162.6 cm; Wt 113.4 kg
[~2020-05-31 09:50] MED LIST changes: -KEFLEX500 M1 PO
[2020-05-31] MEDS ORDERED: KEFLEX500 M1 PO (10:05)
[2020-05-31 10:09] LABS: URINE BILIRUBIN NEGATIVE (Negative); URINE BLOOD NEGATIVE (Negative); URINE CLARITY CLEAR; URINE COLOR YELLOW; URINE GLUCOSE-RANDOM NEGATIVE (Negative); URINE KETONES NEGATIVE (Negative); URINE LEUKOCYTES-REFLEX NEGATIVE (Negative); URINE NITRITE-REFLEX NEGATIVE (Negative); URINE PROTEIN NEGATIVE (Negative); URINE SPECIFIC GRAVITY 1.025 (1.005-1.030); URINE UROBILINOGEN 0.2 E.U./dl (0.2-1.0)
[2020-05-31 10:40] LABS: ABSOLUTE BASOPHILS 0.1 thou/uL (0.0-0.2); ABSOLUTE EOSINOPHILS 0.2 thou/uL (0.0-0.7); ABSOLUTE MONOCYTES 0.7 thou/uL (0.0-1.2); ABSOLUTE NEUTROPHILS 6.1 thou/uL (1.6-8.1); BASOPHILS 1.4 %; EOSINOPHILS 1.8 %; LYMPHOCYTES 22.4 %; MCH 29.1 pg (26.0-34.0); MCHC 33.3 g/dL (28.0-37.0); MCV 87.3 fL (80.0-100.0); MONOCYTES 7.5 %; MPV 7.5 fl. (7.2-11.1); NUCLEATED RBCS 0 /100WBC; PLATELET COUNT* 460 thou/uL (150-400); POLYS 66.9 %; RBC 4.82 mil/uL (4.20-5.00); WBC 9.1 thou/uL (4.0-11.0)
[2020-05-31 10:51] LABS: POTASSIUM 3.9 mmol/L (3.5-5.1)
[2020-05-31 10:55] LABS: ALBUMIN 3.4 g/dL (3.4-5.0); TOTAL BILIRUBIN 0.4 mg/dL (<0.1-1.0); TOTAL PROTEIN 7.3 g/dL (6.4-8.2)
[2020-05-31 11:52] VITALS: BP 135/90
== END 2020-05-31 11:54 | disposition home or self-care (01) ==
LOC: M.ERS 09:50
PROVIDERS: Family Medicine
DX: R10.2 Pelvic and perineal pain (principal); J45.909 Unspecified asthma, uncomplicated; Z88.5 Allergy status to narcotic agent; Z88.1 Allergy status to other antibiotic agents; Z88.8 Allergy status to other drugs, medicaments and biological substances; Z90.49 Acquired absence of other specified parts of digestive tract; Z87.442 Personal history of urinary calculi; Z98.890 Other specified postprocedural states; Z90.710 Acquired absence of both cervix and uterus; Z98.51 Tubal ligation status

== ENCOUNTER → 2020-06-27 | Outpatient (CLI) | payer OTHER, MEDICAID ==
[~2020-06-27] MED LIST changes: +KEFLEX500 M1 PO
== END ==
LOC: M.CT 08:55
PROVIDERS: ATTEND Surgery
DX: K57.30 Diverticulosis of large intestine without perforation or abscess without bleeding (principal); E13.9 Other specified diabetes mellitus without complications; R19.5 Other fecal abnormalities

== ENCOUNTER → 2020-09-05 | Outpatient (CLI) | payer OTHER, MEDICAID ==
[~2020-09-05] MED LIST changes: +KEFLEX250 MG PO; -KEFLEX500 M1 PO; +OXYCODONE HCL 55 MG PO
== END ==
LOC: M.MRI 07:30
PROVIDERS: ATTEND Orthopaedic Surgery
DX: M25.462 Effusion, left knee (principal); S83.282D Other tear of lateral meniscus, current injury, left knee, subsequent encounter; X58.XXXD Exposure to other specified factors, subsequent encounter

== ENCOUNTER → 2020-11-10 | Outpatient (CLI) | payer OTHER, MEDICAID | END | disposition home or self-care (01) | LOC: M.PC 11:29 | PROVIDERS: ATTEND Anesthesiology Pain Medicine | DX: M54.16 Radiculopathy, lumbar region (principal); G89.29 Other chronic pain; Z98.890 Other specified postprocedural states; Z79.899 Other long term (current) drug therapy; Z87.442 Personal history of urinary calculi; Z90.710 Acquired absence of both cervix and uterus; Z98.51 Tubal ligation status; Z90.49 Acquired absence of other specified parts of digestive tract; Z88.8 Allergy status to other drugs, medicaments and biological substances ==

== ENCOUNTER 2020-11-28 13:50 | Emergency (ER) | payer OTHER, MEDICAID ==
[~2020-11-28] VITALS: Ht 162.6 cm; Wt 108.4 kg
[2020-11-28 14:09] LABS: URINE BILIRUBIN NEGATIVE (Negative); URINE BLOOD NEGATIVE (Negative); URINE CLARITY CLEAR; URINE COLOR YELLOW; URINE GLUCOSE-RANDOM NEGATIVE (Negative); URINE KETONES NEGATIVE (Negative); URINE LEUKOCYTES-REFLEX NEGATIVE (Negative); URINE NITRITE-REFLEX NEGATIVE (Negative); URINE PROTEIN NEGATIVE (Negative); URINE SPECIFIC GRAVITY 1.015 (1.005-1.030); URINE UROBILINOGEN 0.2 E.U./dl (0.2-1.0)
[2020-11-28 17:00] LABS: ABSOLUTE BASOPHILS 0.2 thou/uL (0.0-0.2); ABSOLUTE EOSINOPHILS 0.1 thou/uL (0.0-0.7); ABSOLUTE LYMPHOCYTES 2.4 thou/uL (0.8-5.3); ABSOLUTE MONOCYTES 0.8 thou/uL (0.0-1.2); ABSOLUTE NEUTROPHILS 9.8 thou/uL (1.6-8.1); BASOPHILS 1.3 %; EOSINOPHILS 0.9 %; HEMATOCRIT 42.6 % (37.0-47.0); HEMOGLOBIN 13.9 gm/dL (12.0-15.0); LYMPHOCYTES 17.9 %; MCH 28.2 pg (26.0-34.0); MCHC 32.6 g/dL (28.0-37.0); MCV 86.7 fL (80.0-100.0); MONOCYTES 6.1 %; MPV 7.3 fl. (7.2-11.1); NUCLEATED RBCS 0 /100WBC; PLATELET COUNT* 457 thou/uL (150-400); POLYS 73.8 %; RBC 4.91 mil/uL (4.20-5.00); WBC 13.2 thou/uL (4.0-11.0)
[2020-11-28 17:05] LABS: CALCIUM 8.6 mg/dL (8.5-10.1); CREATININE 1.1 mg/dL (0.6-1.3); POTASSIUM 3.7 mmol/L (3.5-5.1)
[2020-11-28 17:09] LABS: ALBUMIN 3.3 g/dL (3.4-5.0); TOTAL BILIRUBIN 0.5 mg/dL (<0.1-1.0); TOTAL PROTEIN 7.3 g/dL (6.4-8.2)
[2020-11-28 18:20] VITALS: BP 139/94
== END 2020-11-28 18:21 | disposition home or self-care (01) ==
LOC: M.ERS 13:50
PROVIDERS: Nurse Practitioner Family; Physician Assistant
DX: R10.32 Left lower quadrant pain (principal); R10.31 Right lower quadrant pain; J45.40 Moderate persistent asthma, uncomplicated; Z90.49 Acquired absence of other specified parts of digestive tract; Z87.442 Personal history of urinary calculi; Z98.890 Other specified postprocedural states; Z90.710 Acquired absence of both cervix and uterus; Z79.51 Long term (current) use of inhaled steroids; Z79.899 Other long term (current) drug therapy; Z79.891 Long term (current) use of opiate analgesic; Z88.1 Allergy status to other antibiotic agents; Z88.5 Allergy status to narcotic agent; Z88.8 Allergy status to other drugs, medicaments and biological substances

== ENCOUNTER → 2021-01-11 | Outpatient (CLI) | payer OTHER, MEDICAID | LOC: M.MRI 13:08 | PROVIDERS: ATTEND Surgery | DX: M51.24 Other intervertebral disc displacement, thoracic region (principal); M48.04 Spinal stenosis, thoracic region; M47.816 Spondylosis without myelopathy or radiculopathy, lumbar region; M47.817 Spondylosis without myelopathy or radiculopathy, lumbosacral region; M48.061 Spinal stenosis, lumbar region without neurogenic claudication; M48.07 Spinal stenosis, lumbosacral region ==

== ENCOUNTER → 2021-04-03 | Outpatient (CLI) | payer OTHER, MEDICAID | LOC: M.MRI 07:04 | PROVIDERS: ATTEND Orthopaedic Surgery | DX: Z12.31 Encounter for screening mammogram for malignant neoplasm of breast (principal); S83.242A Other tear of medial meniscus, current injury, left knee, initial encounter; M25.462 Effusion, left knee; X58.XXXA Exposure to other specified factors, initial encounter; Y93.89 Activity, other specified; Y92.89 Other specified places as the place of occurrence of the external cause; Y99.8 Other external cause status ==